=== PATIENT | female | born 1990 | race Caucasian/White ===

== ENCOUNTER 2024-12-08 15:46 | Outpatient (CLI) | payer OTHER, SELFPAY ==
--- NOTE | 2024-12-08 16:00 | CRLHL7_ITS ---
For Patients: As a result of the Cures Act, medical imaging exams and procedure reports are released immediately into your electronic medical record. You may view this report before your referring provider. If you have questions, please contact your health care provider. OB ULTRASOUND INDICATION: Dating and viability. TECHNIQUE: Real time grayscale imaging of the fetus was performed. Transvaginal. LMP: 10/09/2024. JANKI by LMP: 07/16/2025. GA: 8 w, 4 d. Previous US: No. CRL: 2.3 cm. 9 w 0 d. JANKI: 07/13/2025. FHR: 173 BPM. Gestational sac: 4.7 cm. Appears within normal limits. Yolk sac: 4.1 mm. Appears within normal limits. Right ovary: 3.6 x 2.2 x 2.7 cm. CL. Left ovary: 3.2 x 1.6 x 2.4 cm. IMPRESSION: 1. Single living intrauterine measuring 9 weeks 0 days and sonographic due date 07/13/2025. 2. Incidental corpus luteal cyst right ovary. Herman Adamson M.D. Diagnostic Radiologist [email or web address] [email or web address] rutledge/Dictated by: Herman Adamson MD @ 12/09/2024 6:02:00 AM (Electronically Signed)
== END 2024-12-08 15:47 | disposition home or self-care (01) ==
LOC: US 15:47
PROVIDERS: Visit Provider Registered Nurse
DX: O34.81 Maternal care for other abnormalities of pelvic organs, first trimester (principal); N83.11 Corpus luteum cyst of right ovary; Z3A.09 9 weeks gestation of pregnancy; Z67.20 Type B blood, Rh positive; Z34.01 Encounter for supervision of normal first pregnancy, first trimester
CPT/HCPCS: 76817; 83021; 86592; 86703; 86704; 86706; 86762; 86787; 86803; 86850; 86900; 86901; 87086; 87340; 87491; 87591

== ENCOUNTER 2024-12-08 17:18 | Outpatient (CLI) | payer OTHER, SELFPAY ==
[2024-12-08 22:32] LABS: Chlamydia DNA Amplified* NOT DETECTED (No Detected); GC DNA Amplified* NOT DETECTED (No Detected)
== END 2024-12-08 17:19 | disposition home or self-care (01) ==
PROVIDERS: Visit Provider Registered Nurse
DX: Z34.01 Encounter for supervision of normal first pregnancy, first trimester (principal); Z67.20 Type B blood, Rh positive
CPT/HCPCS: 76817; 83020; 83021; 85660; 86592; 86703; 86704; 86706; 86762; 86787; 86803; 86850; 86900; 86901; 87086; 87340; 87491; 87591

== ENCOUNTER 2025-03-02 12:39 | Outpatient (CLI) | payer OTHER, SELFPAY ==
--- NOTE | 2025-03-02 13:00 | CRLHL7_ITS ---
For Patients: As a result of the Century Cures Act, medical imaging exams and procedure reports are released immediately into your electronic medical record. You may view this report before your referring provider. If you have questions, please contact your health care provider. OB ULTRASOUND GREATER THAN 14 WEEKS, 03/02/2025 CLINICAL HISTORY: Supervision of normal . TECHNIQUE: Real time pérez scale imaging of the fetus was performed. Transabdominal imaging performed. FINDINGS: LMP: 10/09/2024. GA: 20 weeks 4 days. Position: Vertex. Cervix: Visualized. Technique: TA. Length of closed cervix: 3.7 cm. Placenta/Cord: Placenta Position: Anterior, fundal, posterior. Technique: TA. Placenta tip to internal os: 4.0 cm. Umbilical Cord: 3 vessel cord. Placental Insertion: Central. Amniotic Fluid: 5.2 cm SDP. OBSERVED STRUCTURES: Calvarium/Spine: Cerebellum 2.2 cm, 22 weeks 0 days Cisterna Magna: 5.2 mm Nuchal Fold: 5.3 mm Lateral Ventricle: 5.0 mm CSP Choroid Plexus Midline Falx Abdomen: Stomach Abd Cord Insert Urinary Bladder Kidneys Diaphragm Face: Orbital View Profile Limbs: Upper Extremities Lower Extremities Hands Feet Vascular: 4 Ch Heart LVOT RVOT 3VV 3VTV BIOMETRY BPD: 4.9 cm, 20 weeks 6 days. 60% HC: 18.5 cm, 20 weeks 6 days. 53% AC: 15.1 cm, 21 weeks days. 56% FL: 3.4 cm, 20 weeks 4 days. 43% FL/AC: 21.38% HC/AC Ratio: 1.17. Heart Rate: 147 bpm. Age by this US: 21 weeks 0 days. JANKI by this US: 07/13/2025. EFW: 377.,85 grams. 0 lb 13 oz. Percentile by JANKI: 58% IMPRESSION: 1. Concordance of clinical and sonographic dating. 2. Incomplete visualization of the spine, nose and lips. Remainder of the anatomic survey normal. Short-term follow-up recommended. Herman Adamson M.D. Diagnostic Radiologist [email or web address] Transcribed: 9:05 am DW/Dictated by: Herman Adamson MD @ 03/03/2025 6:37:00 AM (Electronically Signed)
== END 2025-03-02 12:40 | disposition home or self-care (01) ==
LOC: US 12:40
PROVIDERS: Visit Provider Midwife
DX: Z34.92 Encounter for supervision of normal pregnancy, unspecified, second trimester (principal); Z3A.20 20 weeks gestation of pregnancy
CPT/HCPCS: 76805

== ENCOUNTER 2025-03-30 12:44 | Outpatient (CLI) | payer OTHER, SELFPAY ==
--- NOTE | 2025-03-30 13:00 | CRLHL7_ITS ---
For Patients: As a result of the Century Cures Act, medical imaging exams and procedure reports are released immediately into your electronic medical record. You may view this report before your referring provider. If you have questions, please contact your health care provider. OB ULTRASOUND FOLLOW-UP MISSING VIEWS BODY, TRANSABDOMINAL JANKI by LMP: 07/16/2025. GA: 24 w, 4 d. Single. Comparison: 03/02/2025, 12/08/2024. INDICATION: Follow-up missing anatomy views (spine/nose/lips). TECHNIQUE: Real time pérez scale imaging of the fetus was performed. Transabdominal imaging performed. CERVIX: Not visualized. POSITIONING: Vertex. AMNIOTIC FLUID: 4.7 cm SDP (N: greater than 2 x 1 cm) PLACENTA: Technique: Transabdominal. PLACENTA POSITION: Anterior, fundal, posterior. DOPPLER: heart rate: 150 bpm. IMPRESSION: 1. Normal spine, nose and lips. 2. Left renal pelvis measures 4.9 mm. Follow-up in the third-trimester recommended. Normal right renal pelvis. Herman Adamson M.D. Diagnostic Radiologist [email or web address] SP/Dictated by: Herman Adamson MD @ 03/30/2025 7:47:00 PM (Electronically Signed)
== END 2025-03-30 12:45 | disposition home or self-care (01) ==
LOC: US 12:45
PROVIDERS: Visit Provider Advanced Practice Midwife
DX: Z36.2 Encounter for other antenatal screening follow-up (principal); Z3A.24 24 weeks gestation of pregnancy
CPT/HCPCS: 76816

== ENCOUNTER 2025-04-27 16:00 | Outpatient (CLI) | payer OTHER, SELFPAY | END 2025-04-27 16:01 | disposition home or self-care (01) | LOC: NFLDREF 05-05 00:27 | PROVIDERS: Visit Provider Advanced Practice Midwife | DX: Z34.93 Encounter for supervision of normal pregnancy, unspecified, third trimester (principal) | CPT/HCPCS: 86592 ==